=== PATIENT | male | born 1970 | race Caucasian/White ===

== ENCOUNTER → 2020-01-07 12:25 | Outpatient (CLI) | payer BC, SELFPAY ==
--- NOTE | ~2020-01-07 | XR_ITS ---
EXAMINATION: XR hip RT min 2V DATE: 01/07/2020 12:48 INDICATION: Right hip pain TECHNIQUE: Anteroposterior and frog leg lateral views of the right hip were obtained. COMPARISON: None. FINDINGS: Alignment is normal. No fracture or suspected avascular necrosis. Mild right hip osteoarthritis with mild nonuniform joint space narrowing superolaterally and small marginal osteophytes. Mild osteoarthr itis at the right sacroiliac joint. IMPRESSION: 1. Mild right hip osteoarthritis. Reviewed, dictated and finalized at location A. ROENTEROLOGIST
== END ==
PROVIDERS: PCP Internal Medicine; Visit Provider Internal Medicine
DX: M16.11 Unilateral primary osteoarthritis, right hip (principal)
CPT/HCPCS: 73502

== ENCOUNTER 2020-04-08 00:08 | Outpatient (CLI) | payer BC, SELFPAY ==
[2020-04-08 18:06] LABS: SARS-CoV-2 RNA PCR Negative
== END 2020-04-08 00:09 | disposition home or self-care (01) ==
LOC: ANHCOVIDDT 00:09
PROVIDERS: PCP Internal Medicine; Visit Provider Internal Medicine Gastroenterology
DX: Z01.812 Encounter for preprocedural laboratory examination (principal); Z20.828 Contact with and (suspected) exposure to other viral communicable diseases
CPT/HCPCS: 87635; C9803; U0003

== ENCOUNTER 2020-04-10 00:12 | Day surgery (SDC) | payer BC, SELFPAY ==
[2020-04-02 10:44] VITALS: BMI 32.0
[2020-04-10 07:40] VITALS: BP 122/83; PULSE 92; RESP 18; TEMP 36.6; O2SAT 98
[2020-04-10] MEDS: LACTATED RINGERS 1,000 ML 150 ML IV CONT (07:41)
--- NOTE | 2020-04-10 07:59 | PM.HPGS ---
History of Present Illness History of Present Illness Consent: Risks, benefits, and alternatives have been discussed and questions answered. Patient agrees to proceed with procedure. Chief complaint: ulcerative colitis Narrative: Jimbo Rodriguez is a 50 year old W male with chronic L sided ulcerative colitis > 15 yr duration and undergoing surveillance exam. Asymptomatic on entyvio. [facility] Past Medical History Medical History Factor V Leiden SHIVA (obstructive sleep apnea) Ulcerative colitis Meds Home Medications and Allergies Home Medications Medication Instructions Recorded Confirmed Type folic acid 1 mg PO DAILY 04/02/20 04/02/20 History kxgesjdxoeuc-seg-tcvc-FA-vit K 1 tablet PO DAILY 04/02/20 04/02/20 History [Adults Multivitamin] sulfasalazine 3,000 mg PO DAILY 04/02/20 04/02/20 History vedolizumab [Entyvio] 30 mg IV DIRECTED 04/02/20 04/02/20 History Allergies Allergy/AdvReac Type Severity Reaction Status Date / Time Antifungal - Imidazole Allergy Severe TONGUE Verified 04/10/20 07:38 THROAT SWELLING NSAIDS (Non-Steroidal Allergy Severe COLITIS Verified 04/10/20 07:38 Anti-Inflamma Vital Signs Vital Signs - 24 hr 04/10/20 07:40 Temperature 36.6 C Pulse Rate 92 Respiratory Rate 18 Blood Pressure 122/83 Pulse Oximetry 98 Exam Const: Orientation/consciousness: patient oriented x3 Resp: Auscultation: clear to auscultation bilaterally Cardio: Rate: regular rate Rhythm: regular rhythm Heart sounds: no murmurs GI: GI Palp: Yes Soft to palpation, No Tenderness to palpation present (GI), Yes No hepatosplenomegaly present and No Palpable mass present Auscultation: normal bowel sounds Neuro: General: patient oriented x3 and no focal motor deficits Extrem: General: no pedal edema Assessment and Plan Additional Plan surveillance colonoscopy secondary to greater than 15 year history of chronic ulcerative colitis
--- NOTE | 2020-04-10 08:24 | WPDANESEPPF ---
Anes - Initial Pre Proc Eval Procedure: Operation Date: 04/10/20 09:00 Proposed Procedures p Colonoscopy - Darshan Hinson MD Date/Time: 04/10/20 08:24 Surgeon: Darshan Hinson MD Pre Op Diagnosis: ulcerative colitis Patient Data Age: 50 Gender: M Height: 1.85 m Weight: 110 kg Last Vital Signs Temp 36.6 C 04/10/20 07:40 Pulse 92 04/10/20 07:40 Resp 18 04/10/20 07:40 BP 122/83 04/10/20 07:40 Pulse Ox 98 04/10/20 07:40 Allergies Allergy/AdvReac Type Severity Reaction Status Date / Time Antifungal - Imidazole Allergy Severe TONGUE Verified 04/10/20 07:38 THROAT SWELLING NSAIDS (Non-Steroidal Allergy Severe COLITIS Verified 04/10/20 07:38 Anti-Inflamma Home Medications Medication Instructions Recorded Confirmed Type folic acid 1 mg PO DAILY 04/02/20 04/02/20 History siagqeddmddg-bqq-amut-FA-vit K 1 tablet PO DAILY 04/02/20 04/02/20 History [Adults Multivitamin] sulfasalazine 3,000 mg PO DAILY 04/02/20 04/02/20 History vedolizumab [Entyvio] 30 mg IV DIRECTED 04/02/20 04/02/20 History Patient hx anesthesia problems: post op nausea/vomiting Family hx anesthesia problems: none PMFSH Past Medical History Medical History (Updated 04/10/20 @ 08:24 by Luis Ca DO) Factor V Leiden asymptomatic, possible carrier rather than full mutation? Worked up because daughter was found to have it in [facility] (obstructive sleep apnea) Ulcerative colitis Anes - Eval Final PreProcedure Day of Procedure 04/10/20 08:24 Patient weight: obese Heart: regular rate and rhythm Lungs: clear to auscultation and normal air movement Airway: Mallampati scale class 1 Neurological: alert and oriented Last oral intake: >/= 8 hours ASA classification: III Emergent: no Anesthetic plan: proceed Anesthesia type and monitoring: general GIVS and standard monitoring Informed Consent: The patient's anesthetic plan and its attendant risks and benefits were discussed with the patient/family/POA. Questions were solicited and answers provided to the satisfaction of the patient/family/POA.
[2020-04-10 09:35] VITALS: BP 106/65; PULSE 72; RESP 14; O2SAT 97
[2020-04-10 09:45] VITALS: BP 117/72; PULSE 69; RESP 13; O2SAT 99
[2020-04-10 09:55] VITALS: BP 119/80; PULSE 71; RESP 17; O2SAT 100
[2020-04-10 10:05] VITALS: BP 145/99; PULSE 79; RESP 29; O2SAT 98
== END 2020-04-10 10:26 | disposition home or self-care (01) ==
PROVIDERS: PCP Internal Medicine; Visit Provider Internal Medicine Gastroenterology
PROC: 0DJD8ZZ Inspection of Lower Intestinal Tract, Via Natural or Artificial Opening Endoscopic (ICD-10-PCS; CPT 45378; principal; 2020-04-10 09:00)
DX: Z12.11 Encounter for screening for malignant neoplasm of colon (principal); K51.90 Ulcerative colitis, unspecified, without complications; K64.4 Residual hemorrhoidal skin tags; D68.51 Activated protein C resistance; G47.33 Obstructive sleep apnea (adult) (pediatric); E66.9 Obesity, unspecified; Z68.32 Body mass index [BMI] 32.0-32.9, adult
CPT/HCPCS: 45380; 88305; J7120

== ENCOUNTER 2024-01-01 15:47 | Outpatient (CLI) | payer OTHER, SELFPAY ==
--- NOTE | ~2024-01-01 | XR_ITS ---
Clinical Indication: Cough PA and lateral views of the chest: Comparison: 01/30/2017 Findings: The lungs are clear, without evidence of focal consolidation or pleural effusion. Cardiome diastinal silhouette is within normal limits. Bones and soft tissues are unremarkable. Impression: Normal chest. Reviewed, dictated and finalized at [facility]. EKEEPER Impression: Normal chest.
== END 2024-01-01 15:48 ==
PROVIDERS: PCP Internal Medicine; Visit Provider Internal Medicine
DX: R05.3 Chronic cough (principal)
CPT/HCPCS: 71046

== ENCOUNTER 2024-01-18 14:37 | Outpatient (CLI) | payer OTHER, SELFPAY ==
--- NOTE | ~2024-01-18 | CT_ITS ---
EXAMINATION:CT diagnostic chest wo con DATE: 01/18/2024 14:51 INDICATION: Chronic cough. TECHNIQUE: Computed tomography (CT) of the chest was performed without intravenous contrast. Automate d exposure control and iterative reconstruction technique were employed. The dose-length product (DLP ) was 752.07 mGy-cm. COMPARISON: Chest 2 views 01/01/2024 FINDINGS: There are a few scattered pulmonary nodules measuring up to 3 mm, likely benign. No pleural effusion. The heart size is normal. No pericardial effusion. There is a 12 mm cyst in left kidney. T here is mild thoracic spondylosis. IMPRESSION: 1. No etiology for the patient's symptoms. Reviewed, dictated and finalized at location E. PROCESSOR
== END 2024-01-18 14:38 ==
LOC: MICIMG 14:38
PROVIDERS: PCP Internal Medicine; Visit Provider Nurse Practitioner Adult Health
DX: R05.3 Chronic cough (principal)
CPT/HCPCS: 71250